=== PATIENT | male | born 1965 | race African-American/Black ===

== ENCOUNTER → 2017-07-03 | Outpatient (CLI) | payer OTHER ==
[~2017-07-03] MED LIST: CIPRO PO; CORICIDIN COUGH1 TAB PO; DIOVAN PO; DIOVAN320 MG PO; LORTAB 10-5001 EACH PO; LOTREL PO; NORVASC10 MG PO; PHENERGAN25 MG PO; ZOFRAN ODT4 MG PO
--- NOTE | ~2017-07-03 | CR58 ---
[facility] A Service of [facility] & [facility] RADIOLOGY TEXT RESULTS PATIENT: EVELIA BUSBY LOCATION: [facility] : 67 UNIT #: [id number] AGE: [address]: REENA PHILLIPS SEX: M ORDER DR: [id number] [facility] [address] [facility] [place], [place] [address] [id number] O MR#: [id number] Acc #: [id number] NAME: EVELIA BUSBY : 1965 SEX: M STUDY DATE/TIME: 07/03/2017 12:56 UNIT: [facility] ROOM: STUDY DESCRIPTION: CR Cervical Spine 2 or 3 Views Attending Physician: Reena Phillips Aprn Referring Physician: Reena Phillips Aprn Ordering Physician: Reena Phillips Aprn Primary Care Physician: Talib Bravo M.D. MEDICAL IMAGING REPORT This report is preliminary unless electronic signature is present EXAM Cervical spine radiograph INDICATION Neck pain. Prior cervical fusion. FINDINGS 3 views of the cervical spine without comparison. There is no acute fracture or subluxation. There has been prior fusion of the C4 and C5 vertebra. Anterior surgical plate and vertebral body screws are normal. There is bony union across the effusion. There is moderate multilevel degenerative change throughout the remainder of the cervical spine. There is mild to moderate disc space narrowing with associated osteophyte formation and facet arthropathy. Prevertebral soft tissues are normal. IMPRESSION 1. Multilevel degenerative changes throughout the cervical spine. 2. Prior effusion of C4-5. Dictated by... Jaswant Richards M.D. THIS IS AN ELECTRONICALLY VERIFIED REPORT Jaswant Richards M.D. at 07/04/2017 5:16 PM JOSE ANGEL/natalie TD: 07/04/2017 16:16 JOB #: [id number] MEDICAL IMAGING REPORT Page 1 of 1 COPY
== END | disposition home or self-care (01) ==
LOC: CRAD 12:35
DX: M54.2 Cervicalgia (principal); M50.30 Other cervical disc degeneration, unspecified cervical region; Z98.1 Arthrodesis status
CPT/HCPCS: 72040